=== PATIENT | female | born 1975 | race Hispanic/Latino ===

== ENCOUNTER 2017-08-01 13:33 | Emergency (ER) | payer OTHER ==
--- NOTE | 2017-08-01 15:16 | ED PDOC ---
Arrival/HPI - General Chief Complaint: Cough, Cold, Congestion Time Seen by Provider: 08/01/17 14:50 Historian: Patient - History of Present Illness Narrative History of Present Illness (Text): 08/01/17 15:11 42yo female with no PMHx who present with 5days history of nonproductive cough, sore throat and ear pain. States she usually get Asthma whenever she gets these symptoms. She however denies wheezing, SOB, chest pain, chest tightness, fever, chills, sick contact, travel. Past Medical History - Provider Review Nursing Documentation Reviewed: Yes - Cardiac Hx Cardiac Disorders: Yes Hx Hypertension: Yes - Pulmonary Hx Respiratory Disorders: Yes Hx Asthma: Yes - Neurological Hx Neurological Disorder: No - HEENT Hx HEENT Disorder: No - Renal Hx Renal Disorder: No - Endocrine/Metabolic Hx Endocrine Disorders: No - Hematological/Oncological Hx Blood Disorders: No - Integumentary Hx Dermatological Disorder: No - Musculoskeletal/Rheumatological Hx Musculoskeletal Disorders: No - Gastrointestinal Hx Gastrointestinal Disorders: No - Genitourinary/Gynecological Hx Genitourinary Disorders: Yes Other/Comment: UTERINE POLYPS - Psychiatric Hx Psychophysiologic Disorder: No Hx Substance Use: No - Surgical History Other/Comment: HYSTEROSCOPY Family/Social History - Physician Review Nursing Documentation Reviewed: Yes Family/Social History: Unknown Family HX Smoking Status: Never Smoked Hx Alcohol Use: No Hx Substance Use: No Allergies/Home Meds Allergies/Adverse Reactions: Allergies No Known Allergies Allergy (Verified 08/01/17 14:15) Home Medications: Home Meds Medication Instructions Recorded Confirmed Cetirizine HCl [Zyrtec] 10 mg PO HS 08/01/17 08/01/17 Enalapril Maleate [Vasotec] 20 mg PO BID 08/01/17 08/01/17 Review of Systems - Physician Review All systems were reviewed & negative as marked: Yes - Review of Systems Constitutional: Normal Eyes: Normal ENT: Sore Throat, Sinus Congestion, Other (B/L ear pain) Respiratory: Cough Cardiovascular: Normal Gastrointestinal: Normal Genitourinary Female: Normal Musculoskeletal: Normal Skin: Normal Neurological: Normal Endocrine: Normal Hemo/Lymphatic: Normal Psychiatric: Normal Physical Exam Vital Signs Reviewed: Yes Vital Signs Temp Pulse Resp BP Pulse Ox 08/01/17 16:19 98.6 F 89 18 140/65 98 08/01/17 16:17 94 H 18 135/79 98 08/01/17 14:15 98.8 F 102 H 16 137/83 96 Temperature: Afebrile Blood Pressure: Normal Pulse: Regular Respiratory Rate: Normal Appearance: Positive for: Well-Appearing, Non-Toxic, Comfortable Pain Distress: None Mental Status: Positive for: Alert and Oriented X 3 - Systems Exam Head: Present: Atraumatic, Normocephalic Pupils: Present: PERRL Extroacular Muscles: Present: EOMI Conjunctiva: Present: Normal Ears: Present: Erythema (B/L TM). No: TM Bulging, Fluid, TM Perf Mouth: Present: Moist Mucous Membranes Pharnyx: Present: ERYTHEMA. No: EXUDATE, TONSILS ENLARGED, Peritonsilar Swelling, Uvular Deviation, Muffled/Hoarse Voice, Strider Nose (Internal): Present: Normal Inspection, Other (Tenderness over the frontal sinus) Neck: Present: Normal Range of Motion Respiratory/Chest: Present: Clear to Auscultation, Good Air Exchange. No: Respiratory Distress, Accessory Muscle Use, Wheezes, Decreased Breath Sounds, Rales, Retracting, Rhonchi, Tachypneic Cardiovascular: Present: Regular Rate and Rhythm, Normal S1, S2. No: Murmurs Abdomen: No: Tenderness, Distention, Peritoneal Signs Back: Present: Normal Inspection Upper Extremity: Present: Normal Inspection. No: Cyanosis, Edema Lower Extremity: Present: Normal Inspection. No: Edema Neurological: Present: GCS=15, CN II-XII Intact, Speech Normal Skin: Present: Warm, Dry, Normal Color. No: Rashes Psychiatric: Present: Alert, Oriented x 3, Normal Insight, Normal Concentration Medical Decision Making ED Course and Treatment: 08/01/17 19:40 CXR NAD PT was afebrile and hemodynamically stable. She was treated with Augmentin for otitis. Tessalon and Albuterol given for cough. Referred to her PMD. TRT ED for any new or worsening symptoms. - RAD Interpretation Radiology Orders: 08/01/17 14:50 CHEST TWO VIEWS (PA/LAT) [RAD] Stat - Medication Orders Current Medication Orders: Discontinued Medications Amoxicillin/Clavulanate Potassium (Augmentin 875 Mg-125 Mg Tab) 1 tab PO STAT STA PRN Reason: Protocol Stop: 08/01/17 15:57 Last Admin: 08/01/17 16:17 Dose: 1 tab Benzonatate (Tessalon Perles) 100 mg PO TID STA Stop: 08/01/17 15:58 Last Admin: 08/01/17 16:17 Dose: 100 mg Ibuprofen (Motrin Tab) 600 mg PO STAT STA Stop: 08/01/17 15:59 Last Admin: 08/01/17 16:17 Dose: 600 mg MAR Pain/Vitals Document 08/01/17 16:17 OCS (Rec: 08/01/17 16:17 OCS [id number]) Pain Reassessment Is This A Pain ReAssessment? Yes Sleep Is patient sleeping during reassessment? No Presence of Pain Presence of Pain Yes Pain Scale Used Pain Scale Used Numeric Location Pain Location Body Site Generalized Description Constant Intensity 6 Scale Used Numeric Aggravating Factors ADL's Disposition/Present on Arrival - Present on Arrival Any Indicators Present on Arrival: No History of DVT/PE: No History of Uncontrolled Diabetes: No Urinary Catheter: No History of Decub. Ulcer: No History Surgical Site Infection Following: None - Disposition Have Diagnosis and Disposition been Completed?: Yes Diagnosis: Acute otitis media, Cough Disposition: HOME/ ROUTINE Disposition Time: 16:00 Patient Plan: Discharge Condition: STABLE Discharge Instructions (ExitCare): Ear Infections (Otitis Media), Viral Upper Respiratory Infection, Adult (DC) Additional Instructions: Follow up with your Doctor Return to ED for any new or worsening symptoms Prescriptions: Albuterol Sulfate [Proair Hfa] 0.09 mg IH Q6 #100 ml Amoxicillin/Clavulanate [Augmentin 875 MG-125 MG] 1 tab PO BID #14 tab Benzonatate [Tessalon Perle] 100 mg PO TID #20 capsule Referrals: Germaine Mccoy, [Primary Care Provider] - Follow up with primary Forms: [employer] ([place])
--- NOTE | 2017-08-01 15:54 | RAD ---
HISTORY: cough COMPARISON: No prior. TECHNIQUE: Chest PA and lateral FINDINGS: LUNGS: No active pulmonary disease. PLEURA: No significant pleural effusion identified. No pneumothorax apparent. CARDIOVASCULAR: Normal. OSSEOUS STRUCTURES: No significant abnormalities. VISUALIZED UPPER ABDOMEN: Normal. OTHER FINDINGS: None. IMPRESSION: No active disease.
[2017-08-01] MEDS ORDERED: Amoxicillin-Clav 875-125 mg Tab PO STA (15:56)
[2017-08-01 16:18] VITALS: RESP 18; O2SAT 98
[2017-08-01 16:21] VITALS: BP 140/65; PULSE 89; TEMP 98.6
== END 2017-08-01 16:19 | disposition home or self-care (01) ==
LOC: ED 13:33
DX: H66.93 Otitis media, unspecified, bilateral (principal); R05 Cough